=== PATIENT | male | born 2005 | race Caucasian/White ===

== ENCOUNTER 2025-01-06 23:55 | Emergency (ER) | payer BC, SELFPAY ==
[2025-01-06 23:55] VITALS: BMI 24.4
[2025-01-06 23:57] VITALS: BP 155/94
[2025-01-07 00:13] LABS: Urine Albumin 3+ (Neg - Trace); Urine Bilirubin Negative (Negative); Urine Character Slightly Cloudy (Clear); Urine Color Yellow; Urine Glucose Negative (Negative); Urine Ketone Negative (Negative); Urine Leukocyte Negative (Negative); Urine Nitrite Negative (Negative); Urine Occult Blood 4+ (Negative); Urine Specific Gravity 1.025 (<1.030); Urine Urobilinogen Negative (Neg - 1+)
[2025-01-07 00:24] VITALS: BP 147/98
[2025-01-07 00:53] LABS: Urine Red Blood Cell >100 /HPF (0-2)
[2025-01-07 00:54] LABS: Urine Bacteria Many (Negative)
[2025-01-07 00:55] LABS: Urine Squamous Cell SEEN /LPF (Few)
[2025-01-07 01:00] VITALS: BP 146/107
[2025-01-07 02:00] VITALS: BP 125/104
[2025-01-07] MEDS: TORADOL 15 MG IV (02:21)
[2025-01-07 02:41] LABS: % Basophils 0.2 % (0-2); % Eosinophils 0.3 % (0-6); % Immature Granulocytes 0.1 % (0-0.5); % Lymphocytes 12.7 % (20.5-51.1); % Monocytes 7.8 % (1.7-9.3); % Neutrophils 78.9 % (42.2-75.2); Absolute Lymphocytes 1.1 10^3/uL (1.2-3.4); Absolute Monocytes 0.7 10^3/uL (0.1-0.6); Absolute Neutrophils 7.1 10^3/uL (1.4-6.5); Hematocrit 43.4 % (39.0-52.0); Hemoglobin 15.7 g/dL (13.0-18.0); Mean Corp Hgb Conc. 36.2 g/dL (33.0-37.0); Mean Corpuscular Hgb 29.8 pg (27.0-31.0); Mean Corpuscular Volume 82.5 fL (80.0-94.0); Mean Platelet Volume 11.2 fL (7.4-10.4); Nucleated Red Blood Cells % 0 % (-); Platelet Count 175 10^3/uL (130-400); Red Blood Cell Count 5.26 10^6/uL (4.70-6.10); Red Cell Dist. Width 12.4 % (11.5-14.5)
--- NOTE | 2025-01-07 02:50 | ED.GENMED ---
History of Present Illness
<Aletha Pennington DO - Last Filed: 01/07/25 03:02>
General
Chief Complaint: Male Genito-Urinary Symptoms
Time Seen by Provider: 01/07/25 01:19
History of Present Illness
History of Present Illness:
19-year-old male without significant past medical history presenting to the emergency department for right testicular pain. Patient reports that he was out with his friends earlier this evening and had acute onset of right testicular pain. Denies
inciting injury or trauma. He went to the bathroom and noticed that his urine was brown. Denies any history of kidney stones. Denies abdominal pain or flank pain. He did not take prior to arrival. Pain is overall improved since arrival to the
hospital. Denies vomiting or changes in stool. Denies any history of abdominal surgeries. Denies additional medical complaint
Past History
<DO Selene Veloz Last Filed: 01/07/25 03:02>
Social History
Tobacco: Non-smoker
Alcohol: None
Drug: None
Phy Exam
<DO Selene Veloz Last Filed: 01/07/25 03:02>
Physical Exam
Physical Exam:
General: Well-appearing, no clinical signs of dehydration, nontoxic and in no acute distress
HEENT: protecting airway
Neck: appears supple
CV: Normal heart rate, regular rhythm, no evidence of cyanosis
Resp: No accessory muscle use, no increased work of breathing, lungs clear to auscultation bilaterally
Abd: Soft and non-distended, no tenderness to palpation
Extremities: No deformities, no swelling
Neuro: alert, no focal neurologic deficit
: Normal-appearing testicles, no significant tenderness on palpation, normal lie
Rectal: deferred
Psych: Normal affect
Skin: Intact
Course
<Aletha Pennington DO - Last Filed: 01/07/25 03:02>
Orders/Labs/Results
Orders:
Orders
01/07/25 00:07
Urinalysis Reflex To Culture Urgent
Date Specimen was Collected: 01/07/25
Time Specimen was Collected: 00:03
Urine Microscopic Reflex Cult Urgent
Urine Culture Urgent
CORDELIA Source: U
Specimen Description:
Date Specimen was Collected: 01/07/25
Time Specimen was Collected: 00:03
Scrotum US [US Scrotum] Urgent
Comment:
Reason For Exam: R side testicular pain, R/O torsion
01/07/25 01:48
Ketorolac [Toradol] 15 mg IV NOW STA
01/07/25 01:49
CT Abd/pel Without Iv Or Oral Urgent
Comment:
Reason For Exam: suspect right kidney stone
01/07/25 02:19
Complete Blood Count/With Diff Urgent
Comprehensive Metabolic Panel Urgent
Abnormal Lab Results
01/07/25 01/07/25
00:07 02:19
MPV 11.2 H fL
(7.4-10.4)
Absolute Neuts (auto) 7.1 H 10^3/uL
(1.4-6.5)
Absolute Lymphs (auto) 1.1 L 10^3/uL
(1.2-3.4)
Absolute Monos (auto) 0.7 H 10^3/uL
(0.1-0.6)
Neutrophils % 78.9 H %
(42.2-75.2)
Lymphocytes % 12.7 L %
(20.5-51.1)
Glucose 107 H mg/dl
(70-99)
Ur Occult Blood Reflex 4+ A
(Negative)
Urine RBC >100 A /HPF
(0-2)
Urine Bacteria (Reflex) Many A
(Negative)
Urine Albumin (Reflex) 3+ A
(Neg - Trace)
01/07/25 02:19
01/07/25 02:19
Vital Signs
Initial and Last Documented VS:
Initial Vital Signs
Temp Pulse Resp BP Pulse Ox
97.7 F 75 18 155/94 99
01/06/25 23:57 01/06/25 23:57 01/06/25 23:57 01/06/25 23:57 01/06/25 23:57
Last Documented Vital Signs
Temp Pulse Resp BP Pulse Ox
97.7 F 75 18 125/104 97
01/06/25 23:57 01/06/25 23:57 01/06/25 23:57 01/07/25 02:00 01/07/25 02:30
<Parish Weber, DO - Last Filed: 01/07/25 03:52>
Orders/Labs/Results
Orders:
Orders
01/07/25 00:07
Urinalysis Reflex To Culture Urgent
Date Specimen was Collected: 01/07/25
Time Specimen was Collected: 00:03
Urine Microscopic Reflex Cult Urgent
Urine Culture Urgent
CORDELIA Source: U
Specimen Description:
Date Specimen was Collected: 01/07/25
Time Specimen was Collected: 00:03
Scrotum US [US Scrotum] Urgent
Comment:
Reason For Exam: R side testicular pain, R/O torsion
01/07/25 01:48
Ketorolac [Toradol] 15 mg IV NOW STA
01/07/25 01:49
CT Abd/pel Without Iv Or Oral Urgent
Comment:
Reason For Exam: suspect right kidney stone
01/07/25 02:19
Complete Blood Count/With Diff Urgent
Comprehensive Metabolic Panel Urgent
Abnormal Lab Results
01/07/25 01/07/25
00:07 02:19
MPV 11.2 H fL
(7.4-10.4)
Absolute Neuts (auto) 7.1 H 10^3/uL
(1.4-6.5)
Absolute Lymphs (auto) 1.1 L 10^3/uL
(1.2-3.4)
Absolute Monos (auto) 0.7 H 10^3/uL
(0.1-0.6)
Neutrophils % 78.9 H %
(42.2-75.2)
Lymphocytes % 12.7 L %
(20.5-51.1)
Glucose 107 H mg/dl
(70-99)
Ur Occult Blood Reflex 4+ A
(Negative)
Urine RBC >100 A /HPF
(0-2)
Urine Bacteria (Reflex) Many A
(Negative)
Urine Albumin (Reflex) 3+ A
(Neg - Trace)
01/07/25 02:19
01/07/25 02:19
Vital Signs
Initial and Last Documented VS:
Initial Vital Signs
Temp Pulse Resp BP Pulse Ox
97.7 F 75 18 155/94 99
01/06/25 23:57 01/06/25 23:57 01/06/25 23:57 01/06/25 23:57 01/06/25 23:57
Last Documented Vital Signs
Temp Pulse Resp BP Pulse Ox
97.7 F 75 18 125/104 97
01/06/25 23:57 01/06/25 23:57 01/06/25 23:57 01/07/25 02:00 01/07/25 02:30
<Aletha Pennington DO - Last Filed: 01/07/25 03:02>
MDM/Problems Addressed
MDM/Problems Addressed:
19-year-old male presenting to the emergency department with right testicular pain. Vital signs are normal.
On exam patient is resting comfortably, no acute distress. No tenderness to abdomen, no tenderness to the flank. Reassuring examination of the genitals. Given patient's initial complaint of testicular pain, ultrasound ordered by nursing staff,
obtained prior to my assessment. Ultrasound without evidence of torsion, orchitis, epididymitis. However, urinalysis shows hematuria. Given symptom complaint and normal ultrasound, ultimately suspect kidney stone. No prior history, so will
obtain CT chest imaging, and treat symptoms with Toradol. No present concern for infected stone, afebrile, pain controlled, no signs of infection on urinalysis.
<Aletha Pennington, DO - Last Filed: 01/07/25 03:02>
*Critical Care Note
Total Time (30-74mins, 75-104mins- exclusive of procedures): Not Applicable
<Parish Weber, DO - Last Filed: 01/07/25 03:52>
Update Note
Update Note:
NAME: DINA BENJAMIN
DATE OF EXAM: 01/07/2025
Patient No: [id number]
Physician: BARRY
Date of : 2005
Past Medical History (entered by Technologist):
Reason For Exam (entered by Technologist): rt groin pain, dark brown urine
Other Notes (entered by Technologist):
Additional Information (per [facility]):
CT ABDOMEN AND PELVIS noncontrast
IMPRESSION:
3 mm stone in the proximal right ureter just past the UPJ causing mild hydronephrosis.
Additional 3 mm nonobstructing stone in the mid right kidney as well as a tiny stone in the superior pole.
Normal retrocecal appendix.
Ankylosis of the left SI joint.
Results faxed/electronically transmitted to the ER and radiology department at 3:41 AM ET.
ED Attending Note
<Aletha Pennington DO - Last Filed: 01/07/25 03:02>
-
Portions of this chart may have been created with voice recognition software.� Occasional wrong word or��sound alike� substitutions may have occurred due to the inherent limitations of voice recognition software.
Discharge Plan
Departure
Patient Disposition: Home (Routine Discharge)
Date of Disposition: 01/07/25
Time of Disposition: 03:51
Patient with high blood pressure during this ER visit?: No
Condition: Good
Discharge Problem:
Nephrolithiasis
Instructions: Blood in the Urine (Hematuria), Adult (DC), Kidney stones in adults - ED discharge instructions
Prescriptions:
New
ibuprofen 600 mg tablet
600 mg PO Q8H PRN (Reason: Pain) Qty: 20 0RF
No Action
ipratropium-albuterol [Combivent Respimat] 1 PUFF mist
1 puff inhalation Q4HPRN PRN (Reason: SOB, wheezing) Qty: 1 0RF
Referrals:
Michael King MD [Active] -
Tila hPan PA-C [Family Provider] -
Activity Restrictions/Additional Instructions:
You were seen in the emergency department for right-sided testicular pain
You were found to have normal ultrasound imaging of your testicles, however there was signs of blood in your urine to CT of your abdomen was completed, which showed evidence of a kidney stone. Please follow-up with the urologist and strain your
urine as directed. You can take Tylenol or Motrin as needed for pain. Return immediately with any increased pain, development of fever or difficulty passing your urine
Please follow-up closely with your primary care physician.
Return to the emergency department for any worsening of your symptoms, or any development of chest pain, difficulty breathing, abdominal pain with persistent vomiting and inability to tolerate food or liquid by mouth (concern for dehydration),
weakness, headache or confusion, fever greater than 100.4, or any additional symptoms that are concerning to you.
Thank you for choosing [facility].
Interventions
Interventions:
*Risk Screen - Suicide Last Done: 01/07/25 00:01
*General Assessment Last Done: 01/07/25 00:01
*Neglect/Abuse Screening Last Done: 01/07/25 00:01
*ED- Fall Risk Assessment Last Done: 01/07/25 00:01
*ED COVID-19 Vaccine History Last Done: 01/07/25 00:01
ED-Male Genitourinary Assessment Last Done: 01/07/25 00:25
Discharge Date and Time
Print Language: LATVIAN
[2025-01-07 02:57] LABS: ALT (SGPT) 18 U/L (0-50); AST (SGOT) 24 U/L (17-59); Albumin 4.5 g/dl (3.5-5.0); Alkaline Phosphatase 80 U/L (38-126); Blood Urea Nitrogen 18 mg/dl (9-20); Calcium 8.9 mg/dl (8.4-10.2); Carbon Dioxide 25 mmol/L (22-30); Chloride 105 mmol/L (98-107); Estimated Creatinine Clearance > 125 ml/min; Glucose 107 mg/dl (70-99); Potassium 3.8 mmol/L (3.5-5.1); Sodium 140 mmol/L (135-145); Total Bilirubin 0.6 mg/dl (0.2-1.3); Total Protein 6.8 g/dl (6.3-8.2); eGFR > 60.00
[2025-01-07 04:03] VITALS: BP 107/54
== END 2025-01-07 04:17 | disposition home or self-care (01) ==
LOC: EMR 23:55
PROVIDERS: Student in an Organized Health Care Education/Training Program; EMERGENCY PHYSICIAN Student in an Organized Health Care Education/Training Program; FAMILY PHYSICIAN Physician Assistant Medical
DX: N13.2 Hydronephrosis with renal and ureteral calculous obstruction (principal); N50.811 Right testicular pain
CPT/HCPCS: 96374; 99284; 74176; 76870; 80053; 81003; 81015; 85025; 87086; 93976